=== PATIENT | male | born 1960 | race Two or more races ===

== ENCOUNTER 2019-05-16 10:12 | Day surgery (SDC) | payer OTHER ==
[2019-05-15 16:55] VITALS: BMI 29.2
[2019-05-16 10:51] VITALS: TEMP 97.7
[2019-05-16 13:37] VITALS: BP 108/56; PULSE 81
--- NOTE | 2019-05-18 14:18 | PATH ---
Surgical Pathology Report Patient Name: MARQUISE STEEL [facility]. Rec. #: [id number] /Age/Gender: 1960 (Age: 58) / M Account: [id number] Location: [facility] Taken: 05/16/2019 Received: 05/17/2019 Reported: 05/18/2019 Physicians: Daniella Figueroa M.D. Specimen(s) Received POLYP SIGMOID COLON Clinical History Screening Postoperative diagnosis: Colon polyps, hemorrhoids Final Diagnosis SIGMOID COLON, POLYP, BIOPSY: HYPERPLASTIC POLYP. Electronically Signed Daniella Wetzel M.D. Gross Description Received in formalin, labeled "biopsy polyp sigmoid colon" is a garcia, irregular portion of soft tissue measuring 0.4 cm. in greatest dimension. The specimen is submitted in toto in one cassette. /05/17/2019 saudi05/17/2019
== END 2019-05-16 12:45 | disposition home or self-care (01) ==
LOC: FASU-ENDO 10:12
PROVIDERS: ATTEND Internal Medicine Gastroenterology
PROC: 0DBN8ZX Excision of Sigmoid Colon, Via Natural or Artificial Opening Endoscopic, Diagnostic (ICD-10-PCS; principal; 2019-05-16 11:49)
DX: Z12.11 Encounter for screening for malignant neoplasm of colon (principal); K63.5 Polyp of colon; K64.1 Second degree hemorrhoids
CPT/HCPCS: 88305-TC